=== PATIENT | female | born 1980 | race American Indian/Alaskan Native ===

== ENCOUNTER 2016-11-05 14:12 | Inpatient (IN) | payer MEDICAID ==
[2016-11-05] MEDS ORDERED: KEPPRA 1,000 MG/NS 0.75% 100ML 1,000 MG/100 ML BAG IV ONE (14:38)
[2016-11-05] MEDS ORDERED: NACL 0.9% 1000 ML IV ONE (15:33)
--- NOTE | 2016-11-05 15:39 | Emergency Department Report ---
HPI - General Chief Complaint: Seizure Time Seen by Provider: 11/05/16 15:27 - HPI HPI: Chief complaint: Seizures HPI: Patient with a history of seizures he has never taken the seizure medication because she never filled her prescription had a grand mal seizure yesterday lasting several minutes. Per her significant other she had a postictal phase of about 15-20 minutes and then returned to baseline. Today just prior to calling the ambulance patient began having seizures lasting approximately 1-2 minutes interspersed with several minutes of non-seizing. Per her significant other this lasted out 8-10 minutes and patient was still seizing when EMS arrived. The last seizure lasted approximately 2 minutes. Patient was given 2 mg of IV Ativan with cessation of her seizures. Patient was given a gram of Keppra upon arrival to the emergency department. Patient is currently postictal and sedated from the Ativan. Mode of arrival: [EMS] Source: Patient significant other and nursing notes. Began: See above Duration: See above Context: See above Quality: Patient states she hurts all over Severity: Unable to assess Improved with: Ativan Worsened with: Unable to assess Associated signs and symptoms: Unable to assess ED Past Medical Hx - Past Medical History Previous Medical History?: Yes Hx Seizures: Yes Hx Asthma: Yes - Surgical History Additional Surgical History: Tubal ligation - Social History Smoking Status: Current Every Day Smoker Substance Use Type: None - Medications Home Medications: Home Medications Medication Instructions Recorded Confirmed Last Taken Type Docusate Sodium [Colace] 100 mg PO BID PRN #60 capsule 10/23/14 Unknown Rx Ibuprofen [Motrin] 800 mg PO Q8H PRN #30 tablet 10/23/14 Unknown Rx oxyCODONE /ACETAMINOPHEN [Percocet 1 - 2 tab PO Q6HR PRN #30 tablet 10/23/14 Unknown Rx 5/325] Lidocaine/Prilocaine [Emla Cream] 30 gm TP PRN PRN #1 cream..g. 10/25/14 Unknown Rx ED Review of Systems ROS: Stated complaint: SEIZURE Other details as noted in HPI Comment: Unobtainable due to pts medical conditions (patient currently postictal and sedated) Physical Exam - Physical Exam Vital Signs: Vital Signs 11/05/16 11/05/16 14:34 14:35 Temperature 97 F L Pulse Rate 68 Respiratory 16 16 Rate Blood Pressure 96/59 [Right] O2 Sat by Pulse 100 100 Oximetry Physical Exam: GENERAL: The patient is well-developed well-nourished . Patient asleep but easily awakened. Patient falls back asleep soon as she is left alone. HEENT: Normocephalic. Atraumatic. Patient has moist mucous membranes. NECK: Supple. No meningitic signs are noted. There is no adenopathy noted. CHEST/LUNGS: Clear to auscultation. There is no respiratory distress noted. HEART/CARDIOVASCULAR: Regular. There is no tachycardia. There is no gallop rub or murmur. ABDOMEN: Abdomen is soft, nontender. Patient has normal bowel sounds. There is no abdominal distention. SKIN: There is no rash. There is no edema. There is no diaphoresis. NEURO: The patient is sleepy and oriented to name and situation the patient is cooperative. The patient moves all extremities. MUSCULOSKELETAL: Muscles are diffusely tender but no deformity. There is no limitation range of motion. There is no evidence of acute injury. ED Course Vital Signs 11/05/16 11/05/16 14:34 14:35 Temperature 97 F L Pulse Rate 68 Respiratory 16 16 Rate Blood Pressure 96/59 [Right] O2 Sat by Pulse 100 100 Oximetry ED Medical Decision Making - Lab Data Result diagrams: 11/05/16 16:06 11/05/16 16:06 Laboratory Tests 11/05/16 11/05/16 11/05/16 16:04 16:04 16:06 Calcium 8.0 L Total Creatine Kinase 267 H Ur Leukocyte Esterase Neg Urine WBC (Auto) 2.0 Urine RBC (Auto) 21.0 U Epithel Cells (Auto) 2.0 Urine Cocaine Screen Presumptive positive - Radiology Data Radiology results: report reviewed (CT of the brain within normal limits.) Critical care attestation.: If time is entered above; I have spent that time in minutes in the direct care of this critically ill patient, excluding procedure time. ED Disposition Clinical Impression: Seizure disorder, convulsive, with status epilepticus, Post-ictal confusion Disposition: OP ADMITTED IP TO THIS HOSP Is pt being admited?: Yes Does the pt Need Aspirin: No Condition: Fair Time of Disposition: 18:08 (admit to the hospitalist)
[2016-11-05 16:08] LABS: Urine Drugs of Abuse Note Disclamer
[2016-11-05 16:19] LABS: Basophils % (Auto) 0.7 % (0.0-1.8); Eosinophils % (Auto) 3.6 % (0.0-4.3); Hematocrit 38.9 % (30.3-42.9); Hemoglobin 12.8 gm/dl (10.1-14.3); Mean Corpuscular HGB Conc 33 % (30-34); Mean Corpuscular Hemoglobin 30 pg (28-32); Mean Corpuscular Volume 93 fl (79-97); Platelet Count 141 K/mm3 (140-440); Red Blood Count 4.19 M/mm3 (3.65-5.03); White Blood Count 10.1 K/mm3 (4.5-11.0)
[2016-11-05 16:28] LABS: Bilirubin,Urine NEG (Negative); Blood,Urine MOD (Negative); Ketones,Urine TR mg/dL (Negative); Leukocyte Esterase,Urine NEG (Negative); Mucus,Urine 1+ /HPF; Nitrite,Urine NEG (Negative); Protein,Urine <15 mg/dL mg/dL (Negative)
[2016-11-05 16:41] LABS: Anion Gap 16 mmol/L; BUN/Creatinine Ratio 11.25; Blood Urea Nitrogen 9 mg/dL (7-17); Carbon Dioxide 24 mmol/L (22-30); Chloride 107.7 mmol/L (98-107); Creatine Kinase 267 units/L (30-135); Glucose 108 mg/dL (65-100); Potassium 3.9 mmol/L (3.6-5.0); Sodium 144 mmol/L (137-145)
--- NOTE | 2016-11-05 17:52 | Cat Scan Report ---
FINAL REPORT EXAM: CT HEAD/BRAIN WO CON HISTORY: status seizure TECHNIQUE: CT head without contrast PRIORS: None. FINDINGS: No acute intra-axial or extra-axial hemorrhage is identified. There is no evidence of midline shift or mass effect. The ventricles and sulci are within normal limits. [place]-white matter differentiation is intact. No acute parenchymal abnormalities seen. Bony calvarium is grossly intact. Visualized portions of the mastoids and paranasal sinuses are unremarkable. IMPRESSION: Negative CT head
[2016-11-05] MEDS ORDERED: MILK OF MAGNESIA PO PRN (18:40)
[2016-11-05] MEDS ORDERED: DULCOLAX PR PRN (18:40)
[2016-11-05] MEDS ORDERED: ZOFRAN IV PRN (18:40)
[2016-11-05] MEDS ORDERED: TYLENOL PO PRN (18:40)
[2016-11-05] MEDS ORDERED: ATIVAN IV PRN (18:46)
[2016-11-05] MEDS ORDERED: NACL 0.9% 1000 ML 1,000 ML IV SCH (19:00)
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
--- NOTE | 2016-11-05 20:23 | Consultation ---
History of Present Illness - Reason for Consult Consult date: 11/05/16 seizure - History of Present Illness went over the notes and saw hx of prior head trauma agree with use of keppra will check EEG on and get MRI thanks for the consult will follow Past History Past Medical History: seizures, other (head injury 5 years ago) Past Surgical History: Other (tubal ligation) Social history: smoking, other (cocaine use). denies: alcohol abuse Family history: diabetes Medications and Allergies Allergies Allergy/AdvReac Type Severity Reaction Status Date / Time No Known Allergies Allergy Verified 07/07/14 18:08 Home Medications Medication Instructions Recorded Confirmed Last Taken Type Docusate Sodium [Colace] 100 mg PO BID PRN #60 capsule 10/23/14 Unknown Rx Ibuprofen [Motrin] 800 mg PO Q8H PRN #30 tablet 10/23/14 Unknown Rx oxyCODONE /ACETAMINOPHEN [Percocet 1 - 2 tab PO Q6HR PRN #30 tablet 10/23/14 Unknown Rx 5/325] Lidocaine/Prilocaine [Emla Cream] 30 gm TP PRN PRN #1 cream..g. 10/25/14 Unknown Rx Active Meds: Active Medications Acetaminophen (Tylenol) 650 mg PO Q4H PRN PRN Reason: Pain MILD(1-3)/Fever >100.5/POLLARD Bisacodyl (Dulcolax) 10 mg [place] QDAY PRN PRN Reason: Constipation unrelieved by MOM Heparin Sodium (Porcine) (Heparin) 5,000 unit SUB-Q Q8HR SERGO Sodium Chloride (Nacl 0.9% 1000 Ml) 1,000 mls @ 75 mls/hr IV DIRECT SERGO Levetiracetam (Keppra) 500 mg PO Q12HR SERGO Lorazepam (Ativan) 1 mg IV Q4H PRN PRN Reason: Seizures Magnesium Hydroxide (Milk Of Magnesia) 30 ml PO Q4H PRN PRN Reason: Constipation Ondansetron HCl (Zofran) 4 mg IV Q8H PRN PRN Reason: N/V unrelieved by Reglan Exam - Constitutional Vitals: Temp Pulse Resp BP Pulse Ox 97 F L 64 16 91/55 97 11/05/16 14:35 11/05/16 17:48 11/05/16 17:48 11/05/16 17:48 11/05/16 17:48 Results - Labs CBC & Chem 7: 11/05/16 16:06 11/05/16 16:06
[2016-11-05] MEDS: KEPPRA PO SCH (23:32)
[2016-11-05] MEDS: HEPARIN SUB-Q SCH (23:33)
[2016-11-06] MEDS: HEPARIN SUB-Q SCH ×3 (06:43→22:41)
[2016-11-06] MEDS: KEPPRA PO SCH ×2 (10:58→22:41)
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
--- NOTE | 2016-11-06 11:10 | Magnetic Resonance Report ---
MRI BRAIN WITH/WITHOUT CONTRAST: History: Seizure. Technique: Multiple T1 and T2 weighted images were obtained in multiple planes. Axial diffusion and gradient imaging was performed. Post contrast T1 images in two planes were obtained following IV gadolinium. Comparison: CT head dated 11/05/16. Findings: The brain parenchyma signal intensity and its zarate-white interface are normal on all sequences. No abnormal parenchymal signal. No diffusion restriction, hemorrhage, mass effect or extra-axial fluid collection. Ventricular size is normal and symmetric. The basal cisterns are clear. The brainstem and cerebellar hemispheres are within normal limits. The fourth ventricle is midline. The paranasal sinuses and mastoid air cells are well aerated. Normal flow voids are identified in the appropriate vessels at the [place]. No abnormal enhancement is identified following IV gadolinium. Impression: 1. Unremarkable MRI brain with and without contrast.
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
[2016-11-07] MEDS: HEPARIN SUB-Q SCH (06:08)
--- NOTE | 2016-11-07 08:19 | Discharge Summary ---
Providers - Providers Date of Admission: 11/05/16 18:40 Date of discharge: 11/07/16 Attending physician: MADDIE ARENAS MD 11/05/16 18:51 Consult to Physician [CONS] Routine Consulting Provider: ALMA AGUILAR Reason For Exam: seizures Place consult to:: answering service Notified:: mauricio Phone number called:: [phone] Time called:: 19:46 11/05/16 18:53 psychiatry consult [Consult to Mental Health] [CONS] Routine Reason For Exam: psych eval and cocaine use Place consult to:: anchor Notified:: cristiano Phone number called:: [phone] Was contact made?: Yes If yes, spoke with:: cristiano Time called:: 08:17 Primary care physician: [employer] Hospitalization Reason for admission: seizure Condition: Stable Hospital course: Patient is a 36-year-old -Domin[place] female with a history of seizures following a head injury about 5 years ago and who has has never taken the seizure medication had a grand mal seizure yesterday lasting several minutes. Per her significant other she had a postictal phase of about 15-20 minutes and then returned to baseline. Just prior to calling the ambulance patient began having seizures lasting approximately 1-2 minutes interspersed with several minutes of non-seizing. Per her significant other this lasted out 8-10 minutes and patient was still seizing when EMS arrived. The last seizure lasted approximately 2 minutes. Patient was given 2 mg of IV Ativan with cessation of her seizures. Patient was given a gram of Keppra upon arrival to the emergency department. Patient is currently postictal and sedated from the Ativan. According to her fianc patient has not had any seizures for several years until day prior to admission. She was found to have cocaine in the toxicology screen. She has known known other medical conditions. She has no evidence of any tongue bite although she apparently had 4-5 seizures. She also has no evidence of any metabolic acidosis to check the lab results. Patient was also seen by psychiatry while she was here in the hospital was noted to have depression for which she asked for voluntary admission to [place] a psychiatric facility. She is clinically stable at this time for discharge of discussed findings with her and the family request. 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 Eyes understand * Grand mal seizures * Substance Abuse with cocaine * Prior head trauma * Depression Disposition: DC/TX PSY HOSP/PSY UNIT Time spent for discharge: 35 mins Core Measure Documentation - Palliative Care Palliative Care/ Comfort Measures: Not Applicable - Core Measures Any of the following diagnoses?: none - VTE Discharge Requirements Deep Vein Thrombosis/Pulmonary Embolism Present on Admission: No Exam - Physical Exam Narrative exam: VITAL SIGNS: Reviewed. GENERAL: The patient appeared well nourished and normally developed. Vital signs as documented. HEAD: No signs of head trauma. EYES: Pupils are equal. Extraocular motions intact. EARS: Hearing grossly intact. MOUTH: Oropharynx is normal. NECK: No adenopathy, no JVD. CHEST: Chest with clear breath sounds bilaterally. No wheezes, rales, or rhonchi. CARDIAC: Regular rate and rhythm. S1 and S2, without murmurs, gallops, or rubs. VASCULAR: No Edema. Peripheral pulses normal and equal in all extremities. ABDOMEN: Soft, without detectable tenderness. No sign of distention. No rebound or guarding, and no masses palpated. Bowel Sounds normal. MUSCULOSKELETAL: Good range of motion of all major joints. Extremities without clubbing, cyanosis or edema. NEUROLOGIC EXAM: Alert and oriented x 3. No focal sensory or strength deficits. Speech normal. Follows commands. PSYCHIATRIC: Mood normal. SKIN: No rash or lesions. - Constitutional Vitals: Temp Pulse Resp BP Pulse Ox 98.4 F 64 18 111/53 97 11/06/16 23:53 11/06/16 23:53 11/06/16 23:53 11/06/16 23:53 11/06/16 23:53 Plan Activity: advance as tolerated, no driving until cleared by PCP, fall precautions Diet: regular Special Instructions: smoking cessation Additional Instructions: Must avoid substance abuse Follow up with: PRIMARY CAREMD [Primary Care Provider] - 3-5 Days ALMA AGUILAR MD [Staff Physician] - 7 Days Prescriptions: QUEtiapine [SEROquel] 200 mg PO QHS #30 tablet levETIRAcetam [Keppra TAB] 500 mg PO Q12HR #60 tablet
[2016-11-07 08:26] VITALS: BP 114/54
--- NOTE | 2016-11-07 09:47 | Admit Criteria Form ---
Admission Criteria Documentation: SEIZURE Clinical Indications for Admission to Inpatient Care (Place 'X' for any and all applicable criteria): Admission is indicated for seizure and ANY ONE of the following(1)(2)(3)(4)(5): [X]I. Inpatient admission required rather than observation care (Also use Seizure: Observation Care Criteria as appropriate) because of ANY ONE of the following: [ ]a) Altered mental status that is severe or persistent [ ]b) New focal neurologic deficit that is severe or persistent [ ]c) Metabolic disorder (eg, hypoglycemia, hyponatremia) that is severe or persistent [X]d) Recurrent seizure [ ]e) Outpatient antiseizure regimen cannot be established (eg , patient cannot tolerate medication, initiation requires inpatient care) [ ]f) Need for ongoing intravenous infusion of antiseizure medication [ ]g) Cardiac arrhythmias of immediate concern [ ]h) Cerebral bleeding, hydrocephalus, or vasospasm monitoring (14) [ ]i) Increased intracranial pressure or cerebral edema monitoring (15) [ ]j) Other treatment or monitoring requiring inpatient admission [ ]II. Status epilepticus [A] or repetitive seizures not controlled with emergent treatment (6)(8) [ ]III. Brain disorder (eg, tumor, edema, and hydrocephalus) that requiring monitoring or intervention available only at inpatient level of care. [ ]IV. Brain insult (eg, severe trauma, stroke, drug toxicity, or withdrawal) that requires monitoring or intervention available only at inpatient level of care (10)(11) Extended stay beyond goal length of stay may be needed for (22) [ ]a) Complications of status epilepticus [ ]b) Refractory status epilepticus [ ]c) Etiology-specific therapy for conditions such as PREPARER infection, head injury,eclampsia, severe metabolic abnormalities, and brain tumor [ ]d) Residual neurologic damage, [ ]e) Initiation of significant change to anticonvulsant treatment [ ]f) Older patients (65 years or older) [ ]g) Patient requiring intubation (eg, to protect airway) The original [email or web address] content created by [email or web address] has been revised. The portions of the content which have been revised are identified through the use of italic text or in bold, and [facility] [employer] has neither reviewed nor approved the modified material. All other unmodified content is copyright [facility] [employer]. Please see references footnoted in the original [facility] edition 2016 Admission Criteria Met: Yes
[2016-11-07] MEDS: KEPPRA PO SCH (09:59)
== END 2016-11-07 14:05 | DRG 101 ==
LOC: ED 14:12 → 3A 18:40
PROVIDERS: ADMIT Internal Medicine; ATTEND Internal Medicine
DX: G40.401 Other generalized epilepsy and epileptic syndromes, not intractable, with status epilepticus (principal); F17.210 Nicotine dependence, cigarettes, uncomplicated; F14.10 Cocaine abuse, uncomplicated; F31.9 Bipolar disorder, unspecified; J45.909 Unspecified asthma, uncomplicated; Z79.899 Other long term (current) drug therapy; Z83.3 Family history of diabetes mellitus; Z98.51 Tubal ligation status
CPT/HCPCS: 36415; 70450; 70553; 80048; 80307; 81001; 82550; 85025; 95819; 96374; 99406; A9577; J1644; J1953; J2060; J7030

== ENCOUNTER 2018-10-02 11:11 | Emergency (ER) | payer MEDICAID ==
[2018-10-02] MEDS ORDERED: ZOFRAN IV ONE (12:00)
[2018-10-02] MEDS ORDERED: MORPHINE IV ONE (12:00)
[2018-10-02] MEDS ORDERED: NACL 0.9% 1000 ML 1,000 ML IV ONE (12:00)
[2018-10-02] MEDS ORDERED: TORADOL IV ONE (12:00)
--- NOTE | 2018-10-02 12:06 | Emergency Department Report ---
ED Abdominal Pain HPI - General Chief Complaint: Nausea/Vomiting/Diarrhea Stated Complaint: ABD PAIN/VOMITING/TROUBLE OF URINATION Time Seen by Provider: 10/02/18 11:43 Source: patient, EMS Mode of arrival: Stretcher Limitations: No Limitations - History of Present Illness Initial Comments: Ms. Becerril is a 38 yo female who presents with gradual onset of severe right flank pain, sharp, burning pain. 06/06. Symptoms began this morning. Only able to urinate a bit at a time. No previous hx of kidney stones or kidney infection. LMP 09/12/2018. Otherwise healthy. Mother stated that Ms. Becerril's urine looked like mud. Complaint: flank pain -: This morning Location: R flank Radiation: RLQ Severity: severe Severity scale (0 -10): 10 Quality: cramping, aching, sharp Consistency: constant Improves With: nothing Worsens With: nothing - Related Data Previous Rx's Medication Instructions Recorded Last Taken Type Docusate Sodium [Colace CAP] 100 mg PO BID PRN #60 capsule 10/23/14 Unknown Rx Lidocaine/Prilocaine [Emla Cream] 30 gm TP PRN PRN #1 cream..g. 10/25/14 Unknown Rx QUEtiapine [SEROquel] 200 mg PO QHS #30 tablet 11/07/16 Unknown Rx levETIRAcetam [Keppra TAB] 500 mg PO Q12HR #60 tablet 08/11/18 Unknown Rx HYDROcodone/APAP 5-325 [[place] 1 each PO Q6HR PRN #15 tablet 10/02/18 Unknown Rx 5/325] Ibuprofen 800 mg PO Q6H PRN #15 tablet 10/02/18 Unknown Rx Promethazine [Phenergan TAB] 25 mg PO Q6HR PRN #10 tab 10/02/18 Unknown Rx Allergies Allergy/AdvReac Type Severity Reaction Status Date / Time No Known Allergies Allergy Verified 07/07/14 18:08 ED Review of Systems ROS: Stated complaint: ABD PAIN/VOMITING/TROUBLE OF URINATION Other details as noted in HPI Comment: All other systems reviewed and negative Constitutional: denies: fever, malaise Cardiovascular: denies: chest pain Endocrine: denies: excessive sweating Gastrointestinal: abdominal pain, nausea, vomiting ED Past Medical Hx - Past Medical History Hx Hypertension: No Hx Heart Attack/AMI: No Hx Congestive Heart Failure: No Hx Diabetes: No Hx Deep Vein Thrombosis: No Hx Renal Disease: No Hx Sickle Cell Disease: No Hx Seizures: Yes Hx Asthma: Yes Hx COPD: No Hx HIV: No - Surgical History Hx Coronary Stent: No Hx Pacemaker: No Hx Internal Defibrillator: No Additional Surgical History: Tubal ligation - Social History Smoking Status: Current Every Day Smoker Substance Use Type: None - Medications Home Medications: Home Medications Medication Instructions Recorded Confirmed Last Taken Type Docusate Sodium [Colace CAP] 100 mg PO BID PRN #60 capsule 10/23/14 Unknown Rx Lidocaine/Prilocaine [Emla Cream] 30 gm TP PRN PRN #1 cream..g. 10/25/14 Unknown Rx QUEtiapine [SEROquel] 200 mg PO QHS #30 tablet 11/07/16 Unknown Rx levETIRAcetam [Keppra TAB] 500 mg PO Q12HR #60 tablet 08/11/18 Unknown Rx HYDROcodone/APAP 5-325 [[place] 1 each PO Q6HR PRN #15 tablet 10/02/18 Unknown Rx 5/325] Ibuprofen 800 mg PO Q6H PRN #15 tablet 10/02/18 Unknown Rx Promethazine [Phenergan TAB] 25 mg PO Q6HR PRN #10 tab 10/02/18 Unknown Rx ED Physical Exam - General Limitations: No Limitations General appearance: alert, in no apparent distress, other (appears uncomfortable) - Head Head exam: Present: atraumatic, normocephalic - Eye Eye exam: Present: normal appearance - ENT ENT exam: Present: mucous membranes moist - Neck Neck exam: Present: normal inspection - Respiratory Respiratory exam: Present: normal lung sounds bilaterally. Absent: respiratory distress - Cardiovascular Cardiovascular Exam: Present: regular rate, normal rhythm. Absent: systolic murmur, diastolic murmur, rubs, gallop - GI/Abdominal GI/Abdominal exam: Present: soft, normal bowel sounds. Absent: distended, tenderness, guarding, rebound - Extremities Exam Extremities exam: Present: normal inspection - Back Exam Back exam: Present: normal inspection, CVA tenderness (R) - Neurological Exam Neurological exam: Present: alert, oriented X3 - Psychiatric Psychiatric exam: Present: normal affect, normal mood - Skin Skin exam: Present: warm, dry, intact, normal color. Absent: rash ED Course Vital Signs 10/02/18 11:20 Temperature 97.5 F L Pulse Rate 65 Respiratory 18 Rate Blood Pressure 121/70 O2 Sat by Pulse 100 Oximetry ED Medical Decision Making - Lab Data Result diagrams: 10/02/18 11:54 10/02/18 11:49 - Medical Decision Making Ms. Becerril presents with flank pain and hematuria. Suspect renal colic. No evidence of acute pyelonephritis. My colleague will follow up CT results. Diana ent is currently pain-free. Anticipate discharge disposition. Provided prescription for ibuprofen [place] promethazine. Critical care attestation.: If time is entered above; I have spent that time in minutes in the direct care of this critically ill patient, excluding procedure time. ED Disposition Clinical Impression: Renal colic on right side Disposition: - TO HOME OR SELFCARE Is pt being admited?: No Does the pt Need Aspirin: No Condition: Stable Instructions: Flank Pain (ED), Kidney Stones (ED) Prescriptions: HYDROcodone/APAP 5-325 [[place] 5/325] 1 each PO Q6HR PRN #15 tablet PRN Reason: Pain Ibuprofen 800 mg PO Q6H PRN #15 tablet PRN Reason: Pain , Severe (7-10) Promethazine [Phenergan TAB] 25 mg PO Q6HR PRN #10 tab PRN Reason: Nausea Referrals: CINDA CARLSON MD [Primary Care Provider] - 3-5 Days [facility] [Outside] - 3-5 Days
[2018-10-02 12:10] LABS: Basophils % (Auto) 0.4 % (0.0-1.8); Eosinophils # (Auto) 0.2 K/mm3 (0.0-0.4); Eosinophils % (Auto) 1.6 % (0.0-4.3); Hematocrit 37.6 % (30.3-42.9); Hemoglobin 12.9 gm/dl (10.1-14.3); Lymphocytes # (Auto) 2.2 K/mm3 (1.2-5.4); Lymphocytes % (Auto) 21.8 % (13.4-35.0); Mean Corpuscular HGB Conc 34 % (30-34); Mean Corpuscular Volume 89 fl (79-97); Monocytes # (Auto) 0.6 K/mm3 (0.0-0.8); Platelet Count 151 K/mm3 (140-440); Red Blood Count 4.22 M/mm3 (3.65-5.03)
[2018-10-02 12:23] LABS: BUN/Creatinine Ratio 18; Blood Urea Nitrogen 14 mg/dL (7-17); Calcium 8.5 mg/dL (8.4-10.2); Hemolysis Index 9
[2018-10-02] MEDS ORDERED: ROCEPHIN/NS 2 GM/100 ML 2 GM/100 ML BAG IV ONE (12:30)
[2018-10-02 12:42] LABS: Bilirubin,Urine NEG (Negative); Blood,Urine MOD (Negative); Color,Urine Yellow (Yellow); HCG Qualitative,Urine Negative (Negative); Mucus,Urine FEW /HPF; WBC,Urine < 1.0 /HPF (0.0-6.0)
[2018-10-02 16:45] VITALS: BP 102/75
--- NOTE | 2018-10-02 16:58 | Cat Scan Report ---
FINAL REPORT PROCEDURE: CT abdomen and pelvis without contrast. TECHNIQUE: Computerized axial tomography of the abdomen and pelvis was performed without intravenous contrast. This study is performed without intravascular contrast material and its sensitivity for ab dominal and pelvic pathology, including neoplasms, inflammation, abscess, free fluid, thrombosis, art erial dissection and infarction, is reduced compared with a contrast enhanced study. HISTORY: Right flank pain, hematuria. COMPARISON: No prior studies are available for comparison. FINDINGS: There is some opacity in the lingula which likely represents subsegmental atelectasis. There are no p leural effusions. The heart size is normal. The liver, pancreas and spleen are grossly normal. The ga llbladder is present. There is no biliary dilatation. The adrenal glands are not enlarged. Both kidne ys appear normal in size and configuration. There is mild dilatation of the right renal pelvis when c ompared to the left side. There are no ureteral calculi. There is a small calculus within the bladder . This may have been recently passed from the right kidney. This calculus measures 2.5 millimeters in diameter. The abdominal aorta has a normal caliber. There is no retroperitoneal adenopathy. The unop acified gastrointestinal tract is unremarkable. A normal appendix is visible. The uterus and adnexal regions appear normal. There are bilateral fallopian tube clips present. The regional skeleton appear s intact. IMPRESSION: Small bladder calculus, probably recently passed from the right kidney. Bilateral fallopian tube clip s. Otherwise normal unenhanced studies of the abdomen and pelvis.
== END 2018-10-02 19:41 | disposition home or self-care (01) ==
LOC: ED 11:11
DX: N23 Unspecified renal colic (principal); J45.909 Unspecified asthma, uncomplicated; F17.200 Nicotine dependence, unspecified, uncomplicated; Z98.51 Tubal ligation status
CPT/HCPCS: 36415; 74176; 80048; 81001; 81025; 85025; 96365; 96375; 99285; J0696; J1885; J2270; J2405; J7030